=== PATIENT | male | born 1995 | race African-American/Black ===

== ENCOUNTER 2018-02-24 17:33 | Emergency (ER) | payer OTHER ==
[~2018-02-24] VITALS: Ht 185.4 cm; Wt 75.1 kg
[~2018-02-24 17:33] MED LIST: LEVE500T13 PO
[2018-02-24 17:54] VITALS: TEMP 36.9; Ht 185.4 cm; Wt 75.1 kg
[2018-02-24] MEDS ORDERED: SODIUM CHLORIDE 0.9% 1000ML 1,000 ML IV STA (18:22)
[2018-02-24] MEDS ORDERED: KETOROLAC TROMETHAMINE 30 MG/ML VIAL IV STA (18:22)
[2018-02-24] MEDS ORDERED: ONDANSETRON 8 MG/54 ML D5W IV STA (18:22)
[2018-02-24 18:44] LABS: BASO % 0.3 %; BASO ABS # 0.02 K/uL (0-0.2); EOS ABS # 0.22 K/uL (0-0.5); HEMATOCRIT 44.4 % (42-52); HEMOGLOBIN 14.9 g/dL (14.0-18.0); IG# 0.05 K/uL (0.00-0.02); LYMPH % 25.5 %; LYMPH ABS # 1.87 K/uL (1.2-3.4); MEAN CELL VOLUME 91.7 fL (80-100); MEAN CORPUSCULAR HEMOGLOBIN 30.8 pg (25-34); MEAN CORPUSCULAR HGB CONC 33.6 g/dl (32-36); MEAN PLATELET VOLUME 9.4 fL (7.4-10.4); MONO % 8.3 %; MONO ABS # 0.61 K/uL (0.11-0.59); NEUT % 62.2 %; NEUT ABS # 4.57 K/uL (1.4-6.5); PLATELET COUNT 332 K/uL (130-400); RED CELL DISTRIBUTION WIDTH CV 14.8 % (11.5-14.5); WHITE BLOOD COUNT 7.34 K/uL (4.8-10.8)
--- NOTE | 2018-02-24 18:50 | DIAGNOSTIC IMAGING REPORT ---
CHEST ONE VIEW PORTABLE CLINICAL HISTORY: EVALUATE ALTERED MENTAL STATUS/WEAKNESS dyspnea COMPARISON STUDY: No previous studies for comparison. FINDINGS: The bones soft tissues and hemidiaphragms are normal. The cardiomediastinal silhouette is normal. The lungs are clear. The pulmonary vasculature is normal. IMPRESSION: Negative chest. The above report was generated using voice recognition software. It may contain grammatical, syntax or spelling errors. Electronically signed by: Carlos Glez M.D. 02/24/2018 6:48 PM Dictated Date/Time: 02/24/2018 6:48 PM
[2018-02-24 19:07] LABS: CALCIUM 8.7 mg/dl (8.5-10.1); CREATININE 0.78 mg/dl (0.60-1.40); POTASSIUM 4.1 mmol/L (3.5-5.1)
[2018-02-24] MEDS ORDERED: PROCHLORPERAZINE 5 MG/ML 2 ML VIAL IV STA (19:30)
--- NOTE | 2018-02-24 19:37 | EMERGENCY ROOM VISIT NOTE ---
History Report prepared by Elenita: Oxana Huynh Under the Supervision of: Dr. Billy [place] D.O. First contact with patient: 17:58 Chief Complaint: SEIZURE Stated Complaint: SEIZURE YESTERDAY VERY SICK SINCE Nursing Triage Summary: see triage note History of Present Illness The patient is a 22 year old male who presents to the Emergency Room with complaints of a seizure occurring yesterday morning at 0530. He states that the fire alarm went off when he was moving out of his dorm and states that the lights were blinking and that he felt hot. He reports that he urinated himself afterwards and that he had a bruise on his arm and face. He states that he does not know how long his seizure lasted. The patient states that since this he has been nauseous, has had a headache, and has been sensitive to light. He reports that he has epilepsy and is on Keppra. He states that his neurologist is at [facility] and that he last saw them in November. He states that he started having seizures and infancy and that they came back in the second grade. He states that he was diagnosed with epilepsy his beth year of high school. He reports having a few seizures over the summer. The patient reports having an EEG done before but not recently. Source of History: patient Onset: yesterday morning at 0530 Position: other (generalized) Quality: other (seizure) Timing: resolved Associated Symptoms: + headache, + nausea Note: additional symptoms: urinated himself, sensitivity to light Review of Systems See HPI for pertinent positives & negatives. A total of 10 systems reviewed and were otherwise negative. Past Medical & Surgical Medical Problems: (1) Epilepsy Family History Patient reports no known family medical history. Social History Smoking Status: Never Smoker Marital Status: single Housing Status: lives with roommate Occupation Status: [employer] student Allergies Coded Allergies: Latex (Verified Allergy, Severe, unsure, 02/24/18) Clarithromycin (Verified Allergy, Unknown, unsure, 02/24/18) Shellfish (Verified Allergy, Unknown, ANAPHYLAXIS, 02/24/18) Physical Exam Vital Signs Date Time Temp Pulse Resp B/P (MAP) Pulse Ox O2 Delivery O2 Flow Rate FiO2 02/24/18 19:26 78 18 113/76 100 Room Air 02/24/18 17:54 36.9 81 18 113/77 99 Room Air Physical Exam CONSTITUTIONAL/VITAL SIGNS: Reviewed / noted above. GENERAL: Non-toxic in appearance. INTEGUMENTARY: Warm, dry, and [place]. HEAD: Normocephalic. EYES: without scleral icterus or trauma. ENT/OROPHARYNX: clear and moist. LYMPHADENOPATHY/NECK: Is supple without lymphadenopathy or meningismus. RESPIRATORY: Lungs clear and equal. CARDIOVASCULAR: Regular rate and rhythm. GI/ABDOMEN: Soft and nontender. No organomegaly or pulsatile mass. No rebound or guarding. Normal bowel sounds. EXTREMITIES: Warm and well perfused. BACK: No CVA tenderness. NEUROLOGICAL: Intact without focal deficits. PSYCHIATRIC: normal affect. MUSCULOSKELETAL: Normally developed with good muscle tone. Medical Decision & Procedures ER Provider Diagnostic Interpretation: Radiology results as stated below per my review and radiologist interpretation: CHEST ONE VIEW PORTABLE CLINICAL HISTORY: EVALUATE ALTERED MENTAL STATUS/WEAKNESS dyspnea COMPARISON STUDY: No previous studies for comparison. FINDINGS: The bones soft tissues and hemidiaphragms are normal. The cardiomediastinal silhouette is normal. The lungs are clear. The pulmonary vasculature is normal. IMPRESSION: Negative chest. The above report was generated using voice recognition software. It may contain grammatical, syntax or spelling errors. Electronically signed by: Carlos Glez M.D. 02/24/2018 6:48 PM Dictated Date/Time: 02/24/2018 6:48 PM Laboratory Results 02/24/18 18:30 Red Blood Count 4.84, Mean Corpuscular Volume 91.7, Mean Corpuscular Hemoglobin 30.8, Mean Corpuscular Hemoglobin Concent 33.6, Mean Platelet Volume 9.4, Neutrophils (%) (Auto) 62.2, Lymphocytes (%) (Auto) 25.5, Monocytes (%) (Auto) 8.3, Eosinophils (%) (Auto) 3.0, Basophils (%) (Auto) 0.3, Neutrophils # (Auto) 4.57, Lymphocytes # (Auto) 1.87, Monocytes # (Auto) 0.61, Eosinophils # (Auto) 0.22, Basophils # (Auto) 0.02 02/24/18 18:30 Test 02/24/18 18:30 White Blood Count 7.34 K/uL (4.8-10.8) Red Blood Count 4.84 M/uL (4.7-6.1) Hemoglobin 14.9 g/dL (14.0-18.0) Hematocrit 44.4 % (42-52) Mean Corpuscular Volume 91.7 fL (80-100) Mean Corpuscular Hemoglobin 30.8 pg (25-34) Mean Corpuscular Hemoglobin Concent 33.6 g/dl (32-36) Platelet Count 332 K/uL (130-400) Mean Platelet Volume 9.4 fL (7.4-10.4) Neutrophils (%) (Auto) 62.2 % Lymphocytes (%) (Auto) 25.5 % Monocytes (%) (Auto) 8.3 % Eosinophils (%) (Auto) 3.0 % Basophils (%) (Auto) 0.3 % Neutrophils # (Auto) 4.57 K/uL (1.4-6.5) Lymphocytes # (Auto) 1.87 K/uL (1.2-3.4) Monocytes # (Auto) 0.61 K/uL (0.11-0.59) Eosinophils # (Auto) 0.22 K/uL (0-0.5) Basophils # (Auto) 0.02 K/uL (0-0.2) RDW Standard Deviation 50.0 fL (36.4-46.3) RDW Coefficient of Variation 14.8 % (11.5-14.5) Immature Granulocyte % (Auto) 0.7 % Immature Granulocyte # (Auto) 0.05 K/uL (0.00-0.02) Anion Gap 6.0 mmol/L (3-11) Est Creatinine Clear Calc Drug Dose 159.1 ml/min Estimated GFR () 149.6 Estimated GFR (Non- 129.0 BUN/Creatinine Ratio 16.5 (10-20) Calcium Level 8.7 mg/dl (8.5-10.1) Total Creatine Kinase 122 U/L (39-308) Laboratory results as stated above per my review. Medications Administered Medications (Trade) Dose Ordered Sig/Koko Route Start Time Stop Time Status Last Admin Dose Admin Sodium Chloride 1,000 ml @ 999 mls/hr Q1H1M STAT IV 02/24/18 18:22 02/24/18 19:22 DC 02/24/18 18:39 999 MLS/HR Ketorolac Tromethamine (Toradol Inj) 30 mg NOW STAT IV 02/24/18 18:22 02/24/18 18:24 DC 02/24/18 18:39 30 MG Ondansetron HCl (Zofran 8mg Iv) 8 mg NOW STAT IV 02/24/18 18:22 02/24/18 18:24 DC 02/24/18 19:01 8 MG Prochlorperazine Edisylate (Compazine Inj) 10 mg NOW STAT IV 02/24/18 19:30 02/24/18 19:31 DC 02/24/18 19:37 10 MG ED Course 1814: Previous medical records were reviewed. The patient was evaluated in room A10. A complete history and physical examination was performed. 1821: Ordered Zofran 8 mg IV, Toradol Inj 30 mg IV, Sodium Chloride 1000 ml @ 999 mls/hr IV. 1929: Ordered Compazine Inj 10 mg IV. 1949: On reevaluation, the patient is resting. I discussed the results and findings with the patient. He verbalized agreement of the treatment plan. He was discharged home. Medical Decision Differential includes: Acute intracranial bleed, trauma, meningitis, encephalitis, increased intracranial pressure, mass or mass effect, facial or dental infection, temporal arteritis, CVA, TIA, acute hypertensive emergency, sinusitis, carbon monoxide exposure. This is a 22-year-old male who presents to the ED with a chief complaint of a headache and nausea. The patient states that he has a history of epilepsy. He has had this since he was in high school. He reports that he is seeing a neurologist from [place]. He is currently on Keppra. The patient states that he was in [facility] when the seizure occurred. It was unwitnessed. He reports a history of tonic-clonic seizures as well as petit mal seizures. He believes that he may have hit his elbow as he had a bruise on his elbow. He states that he was moving out of a dorm in [facility] yesterday and it was hot in the apartment. He states that the fire alarm also went off and may have precipitated his seizure. The patient's states that he did have some urinary incontinence. He states that he has had a few seizures over the summer. He saw his neurologist a few months ago. The patient presents with a complaint of a headache and some nausea related to his recent seizure. He has no other specific complaints. His physical exam was unremarkable. He did not bite his tongue. He is in no distress. His vital signs are normal. Chest x-ray and blood work were normal. The patient was treated with IV fluids as well as IV Toradol and IV Zofran. He was given some IV Compazine for additional nausea. His headache resolved. The patient was ultimately feeling better and was felt to be stable for discharge. [employer] form was completed. Medication Reconcilliation Current Medication List: was personally reviewed by me Blood Pressure Screening Patient's blood pressure: Normal blood pressure Impression Primary Impression: Epilepsy Additional Impressions: Headache Nausea Scribe Attestation The scribe's documentation has been prepared under my direction and personally reviewed by me in its entirety. I confirm that the note above accurately reflects all work, treatment, procedures, and medical decision making performed by me. Departure Information Dispostion Home / Self-Care Referrals Joselito Edwards M.D. (PCP) Forms HOME CARE DOCUMENTATION FORM, IMPORTANT VISIT INFORMATION Patient Instructions My [facility] Additional Instructions Follow-up with your doctors for further care and evaluation in 1-4 days. Return to the emergency department for worsening or new symptoms or any concerns. You have been examined and treated today on an emergency basis only. This is not a substitute for, or an effort to provide, complete comprehensive medical care. It is impossible to recognize and treat all injuries or illnesses in a single emergency department visit. It is therefore important that you follow up closely with your doctor. Call as soon as possible for an appointment. Problem Qualifiers
[2018-02-24 20:07] VITALS: BP 137/86; PULSE 86; O2SAT 97
== END 2018-02-24 20:07 | disposition home or self-care (01) ==
LOC: C.EDB 17:39 → MERGE 17:39 → C.EDA 20:07
DX: G40.909 Epilepsy, unspecified, not intractable, without status epilepticus (principal); R51 Headache; R11.0 Nausea; Z79.899 Other long term (current) drug therapy; Z91.040 Latex allergy status; Z91.013 Allergy to seafood; Z88.1 Allergy status to other antibiotic agents